=== PATIENT | male | born 1975 | race Caucasian/White ===

== ENCOUNTER 2020-09-22 09:59 | Emergency (ER) | payer OTHER, MEDICAID ==
[~2020-09-22] VITALS: Ht 177.8 cm; Wt 77.7 kg
--- NOTE | 2020-09-22 10:14 | PHYS DOC ---
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 Patient is unable to communicate with me. His reel assembler is also a poor historian and is unsure if patient has had any other symptoms such a s fevers, urinary frequency/urgency, nausea/vomiting. 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 Upon physical assessment is noted that patient is wearing a brief. Review of Systems: Review of Systems: 14 body systems of the review of systems have been reviewed. See HPI for pertinent positive and negative responses, otherwise all other systems are negative, nonpertinent or noncontributory Physical Exam: PE: Constitutional: Well developed, well nourished, no acute distress, non-toxic appearance. [] HENT: Normocephalic, atraumatic Eyes: PERRL, conjunctiva normal, no discharge. [] Neck: Normal range of motion, no tenderness, supple, no stridor. [] Cardiovascular:Heart rate regular rhythm, no murmur [] Lungs & Thorax: Bilateral breath sounds clear to auscultation [] Abdomen: Bowel sounds normal, soft, no tenderness, no masses, no pulsatile masses. [] Skin: Warm, dry, no erythema, no rash. [] Back: No tenderness, no CVA tenderness. [] : Urethral discharge noted, mild excoriation noted to penis most likely from dribbling of urine as urine is noted in patient's brief, no objective signs of pain with palpation, no lesions or wounds noted Extremities: No tenderness, no cyanosis, no clubbing, ROM intact, no edema. [] Neurologic: Alert, nonverbal, normal motor function, no focal deficits Psychologic: Affect normal, judgement normal, mood normal. [] Current Patient Data: Labs: Laboratory Tests Test 09/22/20 10:27 Urine Collection Type Unknown Urine Color Yellow Urine Clarity Cloudy Urine pH 8.0 Urine Specific [place] 1.020 Urine Protein 100 mg/dl Urine Glucose (UA) Neg mg/dL Urine Ketones (Stick) Neg mg/dL Urine Blood Mod Urine Nitrite Neg Urine Bilirubin Neg Urine Urobilinogen Dipstick 0.2 mg/dL Urine Leukocyte Esterase Mod Urine RBC 6-10 /HPF Urine WBC >40 /HPF Urine Squamous Epithelial Cells Few /LPF Urine Bacteria Many /HPF Urine Sperm Present /HPF EKG: EKG: [] Radiology/Procedures: Radiology/Procedures: [] Heart Score: C/O Chest Pain: No Risk Factors: Risk Factors: DM, Current or recent (<one month) smoker, HTN, HLP, family history of CAD, obesity. Risk Scores: Score 0 - 3: 2.5% MACE over next 6 weeks - Discharge Home Score 4 - 6: 20.3% MACE over next 6 weeks - Admit for Clinical Observation Score 7 - 10: 72.7% MACE over next 6 weeks - Early Invasive Strategies Course & Med Decision Making: Course & Med Decision Making Pertinent Labs and Imaging studies reviewed. (See chart for details) Patient is a 45-year-old male being seen for white penile discharge and dysuria. A UA was performed that showed positive UTI. Patient given first dose of antibiotic in the ER. Patient discharged home with a prescription for an antibiotic. Patient advised to take Tylenol or ibuprofen for pain or fevers. Patient advised to follow-up with his primary care provider. I discussed with patient all findings and diagnostic testing as well as the need to follow-up with PCP for further evaluation and treatment or return to the ER if any new or worsening symptoms. Strict return precautions were also discussed at length. Patient voiced understanding and agreement with the plan. Patient is hemodynamically stable at the time of disposition. Dragon Disclaimer: Jacklyn Disclaimer: This electronic medical record was generated, in whole or in part, using a voice recognition dictation system. Departure Departure: Impression: Primary Impression: Urinary tract infection Qualified Codes: N30.01 - Acute cystitis with hematuria Disposition: HOME / SELF CARE / HOMELESS Condition: GOOD Referrals: PHIL POTTER MD (PCP) Patient Instructions: Urinary Tract Infection Additional Instructions: You were seen in the ER today for pain with urination. A urinalysis was perfor med and it was positive for an infection. You were given your first dose of antibiotic in the ER. You are being sent home with a prescription for an antibiotic. Please start and finish that completely. You can take Tylenol/ibuprofen for any pain or fevers. Please increase your fluids at home. Please avoid bladder irritants like caffeine or sugary beverages. Please follow-up with your primary care provider tomorrow regarding your ER visit. If you develop increased pain with urination, increased blood in your urine, abdominal pain, back pain, uncontrollable nausea or vomiting please return to the ER immediately. Scripts Cephalexin (CEPHALEXIN) 500 Mg Tablet 1 TAB PO QID for uti for 10 Days, #40 TAB 0 Refills Prov: CAPRI MACIAS APRN 09/22/20 CAPRI MACIAS APRN Sep 22, 2020 10:14
[2020-09-22 10:47] LABS: BILIRUBIN,URINE NEG (NEG); CLARITY,URINE CLOUDY; COLOR,URINE YELLOW; GLUCOSE,URINE NEG (NEG); NITRITE,URINE NEG (NEG); UROBILINOGEN,URINE 0.2 mg/dL (0.2 mg/dL)
[2020-09-22 10:55] LABS: SPERM,URINE PRESENT /HPF
[2020-09-22 10:56] LABS: BACTERIA,URINE MANY /HPF (0-FEW); SQUAMOUS EPITHELIAL CELL,UR FEW /LPF; WBC,URINE >40 /HPF (0-4)
[2020-09-22] MEDS ORDERED: CEPH500T PO (11:08)
[2020-09-22] MEDS: CEPHALEXIN 250 MG CAPSULE PO ONE (11:11)
[2020-09-22 11:15] VITALS: BP 110/63
== END 2020-09-22 11:23 | disposition home or self-care (01) ==
LOC: ER 09:59
DX: N30.01 Acute cystitis with hematuria (principal); R36.9 Urethral discharge, unspecified
CPT/HCPCS: 81001; 87086; 99283